=== PATIENT | male | born 1995 | race Caucasian/White ===

== ENCOUNTER 2022-05-20 08:10 | Outpatient (CLI) | payer OTHER, SELFPAY ==
[2022-05-20 14:02] LABS: Chloride* 104 mmol/L (96-114); Potassium* 4.6 mmol/L (3.6-5.1); Sodium* 138 mmol/L (135-149)
[2022-05-20 14:04] LABS: Cholesterol* 206 mg/dL (90-199); HDL Cholesterol* 60 mg/dL (>=40); LDL Cholesterol Calculated 131 mg/dL (<100); Triglycerides* 75 mg/dL (40-149)
[2022-05-20 14:05] LABS: Blood Urea Nitrogen* 15 mg/dL (5-24); Carbon Dioxide* 27 mmol/L (20-32); Creatinine* 0.8 mg/dL (0.5-1.5); Estimated Glomerular Filt Rate 126 ml/min
[2022-05-20 14:06] LABS: Calcium* 9.7 mg/dL (8.4-10.6); Glucose* 97 mg/dL (60-115)
== END 2022-05-20 08:11 | disposition home or self-care (01) ==
PROVIDERS: PCP Family Medicine; Visit Provider Family Medicine
DX: Z00.00 Encounter for general adult medical examination without abnormal findings (principal); K21.9 Gastro-esophageal reflux disease without esophagitis; Z13.6 Encounter for screening for cardiovascular disorders
CPT/HCPCS: 80048; 80061